=== PATIENT | male | born 1970 ===

== ENCOUNTER 2018-05-08 09:26 | Emergency (ER) | payer OTHER ==
[2018-05-08 09:37] VITALS: BMI 21.4
--- NOTE | 2018-05-08 12:05 | ED PDOC ---
HPI: Back Time Seen by Provider: 05/08/18 09:43 Chief Complaint (Nursing): Back Pain Chief Complaint (Provider): right lower back pain History Per: Patient History/Exam Limitations: language barrier ([employer]: Jamari) Onset/Duration Of Symptoms: Days (x5-6 ) Additional Complaint(s): Glen Langley is a 48 year old male, with no significant past medical history, who presents to the emergency department complaining of right lower back pain ongoing for x5-6 days after bending down to pick something up at work. Patient describes pain as sharp and radiates to right leg. No prior history of back injuries and denies IV drug use although admits to smoking heroin on occasion. He denies any fever, chills, rash, headache, weakness, numbness, incontinence, central back pain, urinary retention or urinary symptoms. No further medical complaints. PMD: None provided. Past Medical History Reviewed: Historical Data, Nursing Documentation, Vital Signs Vital Signs: Last Vital Signs Temp 97.8 F 05/08/18 11:35 Pulse 53 L 05/08/18 11:35 Resp 20 05/08/18 11:35 BP 124/80 05/08/18 11:35 Pulse Ox 100 05/08/18 11:35 - Medical History PMH: No Chronic Diseases - Surgical History Surgical History: No Surg Hx - Family History Family History: States: Unknown Family Hx - Social History Current smoker - smoking cessation education provided: Yes (light smoker <10 cigarettes daily) Alcohol: Occasional Drugs: Opiates (heroin) - Home Medications Home Medications: Ambulatory Orders Medication Instructions Recorded Cyclobenzaprine [Cyclobenzaprine 10 mg PO Q8 PRN #9 tab 05/08/18 HCl] Ibuprofen [Motrin Tab] 600 mg PO Q6 PRN #15 tab 05/08/18 - Allergies Allergies/Adverse Reactions: Allergies Allergy/AdvReac Type Severity Reaction Status Date / Time No Known Allergies Allergy Verified 05/08/18 09:58 Review of Systems ROS Statement: Except As Marked, All Systems Reviewed And Found Negative Constitutional: Negative for: Fever, Weight loss Respiratory: Negative for: Cough, Hemoptysis Gastrointestinal: Negative for: Abdominal Pain Genitourinary Male: Negative for: Dysuria, Frequency, Incontinence, Hematuria Musculoskeletal: Positive for: Back Pain Physical Exam - Reviewed Nursing Documentation Reviewed: Yes Vital Signs Reviewed: Yes - Physical Exam Appears: Positive for: No Acute Distress Head Exam: Positive for: ATRAUMATIC, NORMAL INSPECTION, NORMOCEPHALIC Skin: Positive for: Normal Color, Warm, Dry Eye Exam: Positive for: Normal appearance, EOMI, PERRL Neck: Positive for: Normal, Painless ROM, Supple Cardiovascular/Chest: Positive for: Regular Rate, Rhythm. Negative for: Murmur Respiratory: Positive for: Normal Breath Sounds. Negative for: Respiratory Distress Gastrointestinal/Abdominal: Positive for: Normal Exam, Soft. Negative for: Tenderness, Guarding, Rebound Back: Positive for: Other (Right lumbar hypertonicity and tenderness to the buttock. Full ROM of back. No midline tenderness ). Negative for: L CVA Tenderness, R CVA Tenderness, Vertebral Tenderness Extremity: Positive for: Normal ROM (upper and lower extremities), Other (No track tilley on either arm). Negative for: Deformity, Swelling Neurologic/Psych: Positive for: Alert, Oriented, Gait (steady). Negative for: Motor/Sensory Deficits (Neurologically intact) - ECG O2 Sat by Pulse Oximetry: 100 (RA) Pulse Ox Interpretation: Normal Medical Decision Making Medical Decision Making: Time: 09:43 Initial Impression: Back pain Initial Plan: --Lumbar Spine Complete [RAD] --Flexeril 10 mg PO --Toradol 15 mg IM --Tylenol 325 mg tab 650 mg PO --Reevaluation Checked rectal temp, afebrile. X-rays were performed, negative for lytic lesions or malalignment fracture or dislocation. 12:00 Patient was given Tylenol, Toradol and Flexeril with improvement of symptoms. Upon provider reevaluation patient is feeling better, is medically stable, and requires no further treatment in the ED at this time. Patient will be discharged home with Rx for pain medicine. Counseling was provided and all questions were answered regarding diagnosis and need for follow up with clinic. There is agreement to discharge plan. Return if symptoms persist or worsen. ----- Scribe Attestation: Documented by Miguel Angel Jose, acting as a scribe for Maikel Kelley MD. Provider Scribe Attestation: All medical record entries made by the Scribe were at my direction and personally dictated by me. I have reviewed the chart and agree that the record accurately reflects my personal performance of the history, physical exam, medical decision making, and the department course for this patient. I have also personally directed, reviewed, and agree with the discharge instructions and disposition. Disposition - Clinical Impression Clinical Impression: Back pain - Patient ED Disposition Is Patient to be Admitted: No - Disposition Referrals: [facility] [Outside] Disposition: Routine/Home Disposition Time: 12:00 Condition: STABLE Additional Instructions: Return to ER for any new or worsening symptoms, fever, worse pain, weakness or any concern. Do not operate machinery or drive while taking muscle relaxants as may cause drowsiness. Avoid drug use. Regrese a la dara de emergencias por cualquier sntoma nuevo o que empeore, fiebre, peor dolor, debilidad o cualquier inquietud. No opere maquinaria ni conduzca mientras est tomando relajantes musculares ya que puede causar somnolencia. Tamy el uso de drogas. Prescriptions: Cyclobenzaprine [Cyclobenzaprine HCl] 10 mg PO Q8 PRN #9 tab PRN Reason: Muscle Spasm Ibuprofen [Motrin Tab] 600 mg PO Q6 PRN #15 tab PRN Reason: Pain, Moderate (4-7) Instructions: Low Back Pain (DC) Forms: [facility] (Thai), [facility] ED School/Work Excuse Print Language: [place]GISH
[2018-05-08 12:25] VITALS: BP 148/72; PULSE 83; RESP 16; TEMP 98.7
--- NOTE | 2018-05-08 14:48 | RAD ---
Date of service: 05/08/2018 PROCEDURE: Radiographs of the Lumbar Spine. HISTORY: R low back pain COMPARISON: No prior. FINDINGS: Straightened lumbar curvature without fracture or spondylolisthesis identified. Mild spondylosis is seen at L2-3, moderate to severe at L5-S1. Vertebral body heights are normal. Mild disc height loss seen at L3-4 5, borderline at L5-S1. No destructive bony lesion appreciable. No spondylolysis bilaterally. Multilevel facet arthropathy is identified, predominate at the mid inferior levels. OTHER FINDINGS: None. IMPRESSION: Straightened lumbar curvature without fracture or spondylolisthesis. Multilevel degenerative disease and facet arthropathy are identified.
[2018-05-09 10:50] VITALS: O2SAT 100
== END 2018-05-08 12:23 | disposition home or self-care (01) ==
LOC: H.ER 09:26
DX: M54.5 Low back pain (principal); F17.210 Nicotine dependence, cigarettes, uncomplicated
CPT/HCPCS: 72114; 96372; 99282; J1885

== ENCOUNTER 2018-05-09 10:56 | Emergency (ER) | payer OTHER ==
[2018-05-09 10:56] VITALS: BMI 21.4
[2018-05-09] MEDS ORDERED: Oxycodone/Acetaminophen 5/325 mg Tab PO ONE (13:38)
[2018-05-09] MEDS ORDERED: Lidocaine 5% Patch TD ONE ×2 (13:41→14:00)
[2018-05-09] MEDS ORDERED: Lidocaine 5% Patch TD SCH (13:45)
--- NOTE | 2018-05-09 14:11 | ED PDOC ---
HPI: Back Time Seen by Provider: 05/09/18 12:07 Chief Complaint (Nursing): Back Pain Chief Complaint (Provider): Back Pain History Per: Patient History/Exam Limitations: no limitations Current Symptoms Are (Timing): Still Present Additional Complaint(s): Glen Langley is a 48 year old male with no chronic past medical history, who present to the emergency department with persistent back pain who also presented to the ED yesterday for similar symptoms as today. Patient reports of being unable to sleep and states his pain is worse than it was yesterday, prompting him to come to the ED again. He states his pain is in the right buttock/back and it radiates to the right anterior thigh. Patient had a x-ray done, showing degenerative changes without fractures. He received toradol IM, fl exural and Tylenol in the ED. Patient was discharged with Rx for Flexural and Tylenol. He states he has been taking medications since yesterday without improvement and that his last dose of flexural at 0900 today. Patient denies numbness, tingling or pain in right foot or part of lower extremity, disturbed gait, or weakness. PMD: No provider Past Medical History Reviewed: Historical Data, Nursing Documentation, Vital Signs Vital Signs: Last Vital Signs Temp 98.6 F 05/09/18 11:18 Pulse 72 05/09/18 11:18 Resp 19 05/09/18 11:18 BP 159/86 H 05/09/18 11:18 Pulse Ox 100 05/09/18 11:18 - Medical History Other PMH: degenerative changes - Surgical History Surgical History: No Surg Hx - Family History Family History: States: Unknown Family Hx - Home Medications Home Medications: Ambulatory Orders Medication Instructions Recorded Cyclobenzaprine [Cyclobenzaprine 10 mg PO Q8 PRN #9 tab 05/08/18 HCl] Ibuprofen [Motrin Tab] 600 mg PO Q6 PRN #15 tab 05/08/18 Lidocaine 5% [Lidoderm] 1 ea TD DAILY 7 Days patch 05/09/18 - Allergies Allergies/Adverse Reactions: Allergies Allergy/AdvReac Type Severity Reaction Status Date / Time No Known Allergies Allergy Verified 05/09/18 11:49 Review of Systems ROS Statement: Except As Marked, All Systems Reviewed And Found Negative Musculoskeletal: Positive for: Back Pain, Leg Pain (right anterior thigh), Other (right buttock pain) Neurological: Negative for: Numbness Physical Exam - Reviewed Nursing Documentation Reviewed: Yes Vital Signs Reviewed: Yes - Physical Exam Neck: Negative for: Painless ROM (tender to the right buttock with right lateral rotation of the neck; Good ROM with flexion and roation and left lateral roation of the neck ) Cardiovascular/Chest: Positive for: Regular Rate, Rhythm. Negative for: Murmur Respiratory: Positive for: Normal Breath Sounds. Negative for: Respiratory Distress Back: Positive for: Other (tenderness on palpation to the right upper buttock which shows to the right anterior thigh on palpation; (-) ecchymosis, edema or erythema) Extremity: Positive for: Other (sensation intact on upper and lower extremity to light touch; pain on the right buttock with flexion of the right foot) Neurologic/Psych: Positive for: Alert, Oriented (x3), Other (strength equal bilaterally for upper and lower extremities ) - ECG O2 Sat by Pulse Oximetry: 100 (RA) Pulse Ox Interpretation: Normal Medical Decision Making Medical Decision Making: Initial Time: 13:38 Initial Plan: --lidoderm 1 ea td --Percocet 5/325 mg tab PO x1 --reevaluation Scribe Attestation: Documented by Jamie Santacruz, acting as a scribe for Natalya Dexter PA-C. Provider Scribe Attestation: All medical record entries made by the Scribe were at my direction and personally dictated by me. I have reviewed the chart and agree that the record accurately reflects my personal performance of the history, physical exam, medical decision making, and the department course for this patient. I have also personally directed, reviewed, and agree with the discharge instructions and disposition. Disposition - Clinical Impression Clinical Impression: Sciatica - Disposition Referrals: [facility] [Outside] Disposition Time: 15:06 Condition: STABLE Additional Instructions: Continue to use Flexeril every 8hrs and Ibuprofen every 6hrs for the next 3 days and then as needed. Prescriptions: Lidocaine 5% [Lidoderm] 1 ea TD DAILY 7 Days patch Instructions: Sciatica (DC) Forms: [facility] (Danish) Print Language: MALAY
[2018-05-09 15:19] VITALS: BP 140/78; PULSE 70; RESP 18; TEMP 98.2; O2SAT 99
== END 2018-05-09 15:19 | disposition home or self-care (01) ==
LOC: H.ER 10:56
DX: M54.31 Sciatica, right side (principal)